=== PATIENT | female | born 1995 | race Caucasian/White ===

== ENCOUNTER 2017-08-25 20:50 | Observation (INO) | payer OTHER ==
[~2017-08-25] VITALS: Ht 154.9 cm; Wt 90.7 kg
[2017-08-25 21:25] VITALS: BP 106/56
[2017-08-25] MEDS ORDERED: CALC500T2 PO (21:33)
[2017-08-25] MEDS ORDERED: FERR-252 PO (21:33)
[2017-08-25] MEDS ORDERED: PREN-546 PO (21:33)
[2017-08-25] MEDS ORDERED: cefTRIAXone 2,000 MG in DEXTROSE 5% 100 ML IV ONE (22:25)
[2017-08-25] MEDS ORDERED: [UNRECOGNIZED DRUG - OTHER] IM ONE (22:30)
[2017-08-25] MEDS ORDERED: LIDOCAINE MPF 1% IM ONE (22:30)
[2017-08-25] MEDS ORDERED: CEFTRIAXONE IM ONE (22:30)
[2017-08-25] MEDS ORDERED: LIDOCAINE 1% 500 MG/50 ML VIAL INJ SCH (22:35)
[2017-08-25] MEDS ORDERED: cefTRIAXone 1,000 MG VIAL ONE (22:40)
[2017-08-25] MEDS ORDERED: LIDOCAINE MPF 1% - **ER/OR** 5 ML ONE (22:40)
== END 2017-08-25 23:30 | disposition home or self-care (01) ==
LOC: MLD 20:50
PROVIDERS: ADMIT Obstetrics & Gynecology; ATTEND Obstetrics & Gynecology
DX: O26.892 Other specified pregnancy related conditions, second trimester (principal); R10.30 Lower abdominal pain, unspecified; Z3A.21 21 weeks gestation of pregnancy
CPT/HCPCS: 81000; 96372; G0378; J0696; J2001

== ENCOUNTER 2017-09-29 17:50 | Observation (INO) | payer BC, OTHER ==
[~2017-09-29] VITALS: Ht 154.9 cm; Wt 88.5 kg
[~2017-09-29 17:50] MED LIST: CALC500T2 PO; FERR-252 PO; PREN-546 PO
[2017-09-29] MEDS ORDERED: cefTRIAXone 1,000 MG in LIDOCAINE MPF 1% - **ER/OR** 2.1 ML IM SCH (21:00)
[2017-09-29] MEDS ORDERED: LIDOCAINE 1% 500 MG/50 ML VIAL INJ SCH (21:00)
[2017-09-29] MEDS ORDERED: cefTRIAXone 1,000 MG VIAL ONE (21:01)
[2017-09-29] MEDS ORDERED: LIDOCAINE MPF 1% - **ER/OR** 5 ML ONE (21:02)
== END 2017-09-29 21:30 | disposition home or self-care (01) ==
LOC: MLD 17:50 → UNDOADMOB 18:05
PROVIDERS: ADMIT Obstetrics & Gynecology; ATTEND Obstetrics & Gynecology
DX: O99.89 Other specified diseases and conditions complicating pregnancy, childbirth and the puerperium (principal); M54.5 Low back pain; Z3A.27 27 weeks gestation of pregnancy
CPT/HCPCS: 76805; 96372; G0378; J0696; J2001; Q0092

== ENCOUNTER 2018-02-08 01:22 | Inpatient (IN) | payer BC, OTHER ==
[~2018-02-08] VITALS: Ht 152.4 cm; Wt 88.5 kg
[2018-02-08 01:28] VITALS: BP 133/80
--- NOTE | 2018-02-08 01:28 | NUR ---
TO BED # 3 AMBULATORY, REPORT GIVEN TO ARABELLA FORREST
--- NOTE | 2018-02-08 01:28 | NUR ---
PT C/O PAIN TO RUQ ABD PAIN THAT WORSENS WITH FOOD INTAKE X1 MONTH. PT STATES ABD PAIN IS RESOLVED AT THIS TIME. X4 BOWEL SOUNDS PRESENT. A&OX4. POSITIONED WITH HOB ELEVATED. VSS. ER MD AWARE. CONTINUE TO MONITOR.
--- NOTE | 2018-02-08 01:39 | NUR ---
ER MD DR CHACKO AT BEDSIDE
[2018-02-08 01:59] LABS: BASOPHILS # (AUTO) 0.1 K/uL (0.00-0.22); BASOPHILS % (AUTO) 0.8 % (0.0-2.0); EOSINOPHILS # (AUTO) 0.2 K/uL (0-0.4); EOSINOPHILS % (AUTO) 1.7 % (0.0-4.0); HEMATOCRIT 36.4 % (36-48); LYMPHOCYTES # (AUTO) 4.1 K/uL (2.5-16.5); LYMPHOCYTES % (AUTO) 40.6 % (20.5-51.1); MEAN CORPUSCULAR HEMOGLOBIN 29 pg (27-31); MEAN CORPUSCULAR HGB CONC 33 g/dL (33-37); MEAN CORPUSCULAR VOLUME 87.7 fL (80-94); MONOCYTES # (AUTO) 0.6 K/uL (0.8-1.0); MONOCYTES % (AUTO) 5.6 % (1.7-9.3); NEUTROPHILS # (AUTO) 5.1 K/uL (1.8-7.7); NEUTROPHILS % (AUTO) 51.3 % (42.2-75.2); PLATELET COUNT (AUTO) 261 K/uL (140-450); RED BLOOD CELL COUNT(AUTO) 4.15 MIL/uL (4.20-5.40); RED CELL DISTRIBUTION WIDTH 14.6 % (11.6-13.7)
[2018-02-08 02:09] LABS: ANION GAP 12.3 (8-16); CARBON DIOXIDE 28.3 mmol/L (21-32); CREATININE 0.7 mg/dL (0.6-1.3); POTASSIUM 3.6 mmol/L (3.5-5.1)
[2018-02-08 02:15] LABS: ALBUMIN 3.6 g/dL (3.4-5.0); TOTAL BILIRUBIN 0.4 mg/dL (0.0-1.0)
[2018-02-08] MEDS ORDERED: NACL 0.9% 1,000 ML IV ONE (02:45)
[2018-02-08] MEDS ORDERED: KETOROLAC 30 MG/ML VIAL IVP ONE (02:45)
[2018-02-08] MEDS ORDERED: ONDANSETRON 4 MG/2 ML VIAL IVP ONE (02:45)
[2018-02-08] MEDS ORDERED: MORPHINE SULFATE 2 MG/ML SYR IVP PRN (04:15)
[2018-02-08] MEDS ORDERED: ONDANSETRON 4 MG/2 ML VIAL IVP PRN (04:15)
[2018-02-08] MEDS ORDERED: ACETAMINOPHEN 325 MG TAB PO PRN (04:15)
[2018-02-08] MEDS ORDERED: MORPHINE SULFATE 4 MG/ML SYR IVP PRN (04:15)
[2018-02-08 04:45] VITALS: BP 112/52
--- NOTE | 2018-02-08 04:45 | NUR ---
RECEIVED PT FROM ER VIA WHEELCHAIR PT AAOX4 AMBULATORY HL ON LEFT AC GAUGE #22 PATENT, MRSA NARES SWAB SCREE PROTOCOL DONE , SKIN IS INTACT PT DENIES ANY PAIN ON ADMISSION PT IS; ;ORIENTED TO THE FLOOR CALL LIGHT WITHIN REACH
--- NOTE | 2018-02-08 04:50 | NUR ---
REPORT GIVEN AND CARE TRANSFERED TO [facility] RN ROOM 120A. TRANSFERED VIA WHEEL CHAIR WITH VSS.
[2018-02-08] MEDS: NACL 0.9% 1,000 ML IV SCH ×2 (05:16→14:02)
--- NOTE | 2018-02-08 06:26 | NUR ---
PT RESTING ON BED NOT SIGNS OF PAIN NOTED IV ON LEFT AC INFUSING WELL
--- NOTE | 2018-02-08 07:10 | NUR ---
RECEIVED PT FROM AIRCRAFT ENGINE ASSEMBLER NURSE, EDD, PT IS ASLEEP LYING ON THE BED WITH RESPIRATION EVEN AND NO SIGN OF DISTRESS NOTED, SIDE RAILS ARE UP AND CALL LIGHT WITHIN REACH. PT HAS AN IV LINE ON THE LEFT AC G. 22 WITH NS AT 100ML/HR, RUNNING AND INTACT. WILL CONTINUE TO MONITOR PT.
--- NOTE | 2018-02-08 07:25 | NUR ---
PT IS ENDORSED TO MARISABEL FORREST FOR CONTINUITY OF CARE
[2018-02-08 08:00] VITALS: BP 108/53
--- NOTE | 2018-02-08 08:05 | NUR ---
PT IS AWAKE AND VITAL SIGNS TAKEN AND WITHIN NORMAL LIMITS, PT DENIES PAIN AT THIS TIME. WILL MONITOR.
--- NOTE | 2018-02-08 08:11 | NUR ---
CM NOTE ADMISSION CHART REVIEW DONE. INITIAL REVIEW FAXED TO [facility] [phone] # [phone] [facility] EXT [phone].
--- NOTE | 2018-02-08 08:53 | NUR ---
PATIENT HAS BEEN SCREENED AND CATEGORIZED MODERATE NUTRITION RISK. PATIENT WILL BE SEEN WITHIN 3-5 DAYS OF ADMISSION. 02/10/18 02/12/[address]
--- NOTE | 2018-02-08 08:54 | NUR ---
PATIENT HAS BEEN SCREENED AND CATEGORIZED MODERATE NUTRITION RISK. PATIENT WILL BE SEEN WITHIN 3-5 DAYS OF ADMISSION. 02/10/18 02/12/[address]
--- NOTE | 2018-02-08 09:30 | NUR ---
PT IS AWAKE AND SEATED ON THE BED, DENIES PAIN AT THIS TIME. WILL MONITOR.
--- NOTE | 2018-02-08 12:00 | NUR ---
ACKNOWLEDGED AN ORDER FROM DR. EWING FOR A SURGICAL PROCEDURE OF A LAPAROSCOPIC POSSIBLE OPEN CHOLECYSTECTOMY AND POSSIBLE CHOLANGIOGRAM TO BE DONE TO THE PT, TYPE AND SCREEN WAS ORDERED ALSO AND PT WAS STILL KEPT ON NPO.
--- NOTE | 2018-02-08 13:13 | NUR ---
PT IS AWAKE, ALERT AND ORIENTED. PT WAS INFORMED OF A LAPAROSCOPIC POSSIBLE OPEN CHOLECYSTECTOMY AND POSSIBLE CHOLANGIOGRAM THAT WILL BE DONE BY DR. DANIA EWING,PT VERBALIZED UNDERSTANDING AND SAID THAT SHE WAS INFORMED BY THE MD. CONSENT WAS SIGNED BY THE PT AT THIS TIME. CONSENT PLACED ON THE CHART.
--- NOTE | 2018-02-08 14:02 | NUR ---
PT IS AWAKE AND IS SEATED ON THE BED, STARTED A NEW IV FLUID BAG AT A RATE OF 100ML/HR.
--- NOTE | 2018-02-08 15:10 | NUR ---
PT WAS SEEN AMBULATING IN THE HALLWAY, NO SOB NOTED. WILL MONITOR PT.
[2018-02-08 16:00] VITALS: BP 114/73
--- NOTE | 2018-02-08 16:40 | NUR ---
PT IS AWAKE AND SEATED ON THE BED WITH MOTHER ON THE BEDSIDE, VITAL SIGN TAKEN AND IS WITHIN NORMAL LIMITS. PT ASKED ABOUT THE TIME OF SURGERY BUT WAS INFORMED THAT NO SCHEDULE YET OF THE SURGERY WAS POSTED. WILL CONTINUE TO MONITOR PT.
--- NOTE | 2018-02-08 18:34 | NUR ---
PT IS AWAKE AND SEATED ON THE BED WHILE LISTENING TO MUSIC ON HER EARPHONE. PT DENIES ANY PAIN AT THIS TIME. WILL MONITOR PT.
--- NOTE | 2018-02-08 19:30 | NUR ---
ENDORSED PT TO HOURLY TEAM MEMBERS NURSE, EDD FOR CONTINUITY OF CARE. PT IS STABLE AT THIS TIME.
--- NOTE | 2018-02-08 19:31 | NUR ---
RECEIVED PT FROM MARISABEL FORREST PT IS AAOX4 AMBULATORY IV ON LEFT AC INFUSING WELL DENIES ANY PAIN AT THIS TIME PT NPO FOR LAP ALICE TOMORROW BY DR DANIA EWING INITIAL ASSESSMENT DONE
[2018-02-08 20:00] VITALS: BP 134/87
--- NOTE | 2018-02-08 20:20 | NUR ---
Patient's Plan of Care was discussed and reviewed with BLUEPRINTER: MIKEY BLEDSOE
--- NOTE | 2018-02-08 20:20 | NUR ---
PT IS ENDORSED TO MIKEY BRAVO PANCHITO CONTINUITY OF CARE
--- NOTE | 2018-02-08 20:21 | NUR ---
RECD. RESTING IN BED, AWAKE, A/OX4. IRANIAN BUT ABLE TO SPEAK AND UNDERSTAND ESTONIAN. RESPIRATION EVEN AND UNLABORED. IV OF NS AT 100 ML/HR INFUSING, LEFT AC G20. AMBULATORY TO BR. AWARE OF PLANNED SURGERY TOMORROW. PLAN OF CARE FOR THE SHIFT DISCUSSED. VERBALIZED UNDERSTANDING. NPO. DENIES PAIN 0/10.
[2018-02-09] VITALS: BP 122/70
--- NOTE | 2018-02-09 | NUR ---
SLEEPING COMFORTABLY IN BED.
[2018-02-09] MEDS: NACL 0.9% 1,000 ML IV SCH ×2 (00:11→10:11)
--- NOTE | 2018-02-09 05:00 | NUR ---
CHLORHEXIDINE WIPES GIVEN TO CLEANSE SELF. NEW GOWN AND BEDDINGS CHANGED.
[2018-02-09 06:25] LABS: BASOPHILS % (AUTO) 0.4 % (0.0-2.0); EOSINOPHILS # (AUTO) 0.2 K/uL (0-0.4); EOSINOPHILS % (AUTO) 2.7 % (0.0-4.0); HEMATOCRIT 35.7 % (36-48); HEMOGLOBIN 11.9 g/dL (12.0-16.0); MEAN CORPUSCULAR HEMOGLOBIN 30 pg (27-31); MEAN CORPUSCULAR HGB CONC 33 g/dL (33-37); MEAN CORPUSCULAR VOLUME 88.4 fL (80-94); MONOCYTES # (AUTO) 0.5 K/uL (0.8-1.0); MONOCYTES % (AUTO) 6.1 % (1.7-9.3); NEUTROPHILS % (AUTO) 51.8 % (42.2-75.2); PLATELET COUNT (AUTO) 255 K/uL (140-450); RED BLOOD CELL COUNT(AUTO) 4.04 MIL/uL (4.20-5.40); RED CELL DISTRIBUTION WIDTH 14.3 % (11.6-13.7); WHITE BLOOD COUNT (AUTO) 7.7 K/uL (4.8-10.8)
[2018-02-09 06:41] LABS: PROTHROMBIN TIME 9.9 secs (10.8-13.4)
[2018-02-09 06:53] LABS: ALBUMIN 3.5 g/dL (3.4-5.0); ANION GAP 11.7 (8-16); CARBON DIOXIDE 27.1 mmol/L (21-32); CREATININE 0.7 mg/dL (0.6-1.3); POTASSIUM 3.8 mmol/L (3.5-5.1); TOTAL BILIRUBIN 0.5 mg/dL (0.0-1.0)
--- NOTE | 2018-02-09 07:20 | NUR ---
ENDORSED TO AM NURSES FOR CONTINUITY OF CARE.
--- NOTE | 2018-02-09 07:21 | NUR ---
RECEIVED PT REPORT AT BEDSIDE FOR CONTINUITY OF CARE. PT IS A&O X 4. PT IS SCHEDULED FOR A 0900 CHOLECYSTECTOMY. CURRENTLY NPO. SKIN INTACT. LAST BM ON 02/07. IV IN L AC 22 GAUGE, 100 ML/HR, INFUSING NS. PREOP CHECKLIST DONE, TICKET TO RIDE DONE. CONSENT IN THE CHART. VS WITHIN NORMAL RANGE, ROOM AIR. WILL CONTINUE TO MONITOR.
[2018-02-09 08:00] VITALS: BP 109/67
--- NOTE | 2018-02-09 08:30 | NUR ---
TWO OR NURSES PICKED UP PATIENT FOR SURGERY. PT IS IN STABLE CONDITION. WILL AWAIT PT'S RETURN.
--- NOTE | 2018-02-09 08:34 | NUR ---
CM NOTE PER JUNIOR ACCOUNT MANAGER RAMBO, PATIENT'S CURRENT INSURANCE IS [employer] AND REVIEWS SHOULD ONLY BE SENT TO [facility] [employer]. CONCURRENT REVIEW FAXED TO [facility] [phone] # [phone] [facility] EXT [phone].
[2018-02-09] MEDS: BUPIVACAINE-MPF/EPI 0.25% 30 ML VIAL INJ ONE ×2 (08:52→14:13)
[2018-02-09] MEDS ORDERED: ONDANSETRON 4 MG/2 ML VIAL IVP ONE (08:53)
[2018-02-09] MEDS ORDERED: SUCCINYLCHOLINE CHLORIDE 200 MG/10 ML VIAL IV ONE (08:53)
[2018-02-09] MEDS ORDERED: GLYCOPYRROLATE 0.2 MG/ML VIAL IV ONE (08:53)
[2018-02-09] MEDS ORDERED: PHENYLEPHRINE 10 MG/ML VIAL IV ONE (08:53)
[2018-02-09] MEDS ORDERED: KETOROLAC 30 MG/ML VIAL IVP ONE (08:53)
[2018-02-09] MEDS ORDERED: ROCURONIUM 50 MG/5 ML VIAL IV ONE (08:53)
[2018-02-09] MEDS ORDERED: PROPOFOL 200 MG/20 ML VIAL IV ONE (08:53)
[2018-02-09] MEDS ORDERED: LIDOCAINE MPF 2% 100 MG/5 ML VIAL INJ ONE (08:53)
[2018-02-09] MEDS ORDERED: DEXAMETHASONE 4 MG/ML VIAL IVP ONE (08:53)
[2018-02-09] MEDS ORDERED: DESFLURANE 240 ML BTL INH ONE (08:53)
[2018-02-09] MEDS ORDERED: fentaNYL 0.05 MG/ML VIAL ONE (09:03)
[2018-02-09] MEDS ORDERED: MIDAZOLAM 2 MG/2 ML VIAL ONE (09:03)
[2018-02-09] MEDS ORDERED: ceFAZolin 1,000 MG VIAL ONE (09:04)
[2018-02-09] MEDS ORDERED: HYDROmorphone 1 MG/ML AMP IVP PRN (09:40)
[2018-02-09] MEDS ORDERED: ONDANSETRON 4 MG/2 ML VIAL IVP PRN (09:40)
--- NOTE | 2018-02-09 11:25 | NUR ---
RETURNED TO THE UNIT. S/P LAP ALICE. 4 BANDAIDS ON ABD. V/S STABLE. ACCOMPANIED BY MOM AT BEDSIDE. PT AOX4. AWAKE. DENIES PAIN. WILL CONTINUE TO MONITOR PT.
--- NOTE | 2018-02-09 13:19 | NUR ---
PT EATING LUNCH, FULL LIQ DIET. PT TOLERATING OK. NO COMPLAINTS AT THIS TIME. WILL CONTINUE TO MONITOR.
--- NOTE | 2018-02-09 15:07 | NUR ---
PT AMBULATED TO BATHROOM WITH STILL CLEANER'S ASSISTANCE. NO REPORT OF PASSING GAS AT THIS TIME. PT BACK IN BED, APPLIED SCD'S TO BLE'S. NO C/O PAIN AT THIS TIME.
[2018-02-09 16:00] VITALS: BP 131/83
[2018-02-09] MEDS ORDERED: ACET-2869 PO (17:11)
--- NOTE | 2018-02-09 17:20 | NUR ---
PT RESTING COMFORTABLY. NO SIGNS OF DISTRESS. NO COMPLAINTS. EXPLAINED TO PT, MD'S ARE RELEASING HER TO GO HOME. WILL CALL MOM ABOUT RIDE.
--- NOTE | 2018-02-09 19:10 | NUR ---
DC INSTRUCTIONS GIVEN TO PT AND MOM. VERBALIZED UNDERSTANDING. REMOVED IV AND ID BANDS. NO BLEEDING NOTED. CANNULA INTACT. WILL GET CHANGED AND GATHER HER STUFF. MOM WILL BE GETTING THE CAR. WILL GET WHEELCHAIR READY.
--- NOTE | 2018-02-09 19:20 | NUR ---
WHEELCHAIRED PT OUT TO THE CAR. MOM WAITING OUTSIDE. SISTER ACCOMPANYING PT. PERSONAL BELONGINGS WITH PT. NO SIGNS OF DISTRESS. PT IN STABLE CONDITION.
== END 2018-02-09 19:20 | disposition home or self-care (01) | DRG 263 ==
LOC: MED 01:22 → MTU 04:14
PROVIDERS: ADMIT Hospitalist; ATTEND Hospitalist
PROC: 0FT44ZZ Resection of Gallbladder, Percutaneous Endoscopic Approach (ICD-10-PCS; principal; 2018-02-08)
DX: K85.10 Biliary acute pancreatitis without necrosis or infection (principal); K80.10 Calculus of gallbladder with chronic cholecystitis without obstruction; E66.9 Obesity, unspecified; Z68.38 Body mass index [BMI] 38.0-38.9, adult
CPT/HCPCS: 36415; 76705; 80053; 83690; 84702; 85025; 85610; 86886; 86900; 86901; 87081; 96361; 96374; 96375; 99285; J0330; J0690; J1100; J1885; J2001; J2250; J2370; J2405; J2704; J3010; J3490; J7030; Q0092